=== PATIENT | female | born 1990 | race Caucasian/White ===

== ENCOUNTER 2019-10-31 16:27 | Emergency (ER) | payer BC ==
[2019-10-31] MEDS ORDERED: Aspirin 325 MG Tab PO ONE (16:51)
[2019-10-31] MEDS ORDERED: Sodium Chloride 0.9% 1,000 ML IV ONE (16:53)
[2019-10-31] MEDS ORDERED: Aspirin 81 MG Tab.Chew PO ONE (17:10)
--- NOTE | 2019-10-31 17:31 | CR ---
Chest: Portable view of the chest was obtained. Comparison: Prior chest x-ray is not available. Heart is felt to be at the upper limits of normal. Tortuous thoracic aorta is seen. Lungs are clear with no acute parenchymal change. Minimal scoliosis is noted. No acute osseous finding is seen. Impression: 1. Findings as noted above. 2. Nothing acute is seen. Diagnostic code #2 This report was dictated in MDT
[2019-10-31 17:36] LABS: BLOOD UREA NITROGEN,BUN 15 mg/dL (7.0-18.0); CARBON DIOXIDE,CO2 26.3 mmol/L (21.0-32.0); CHLORIDE,CL 104 mmol/L (98-107); GLUCOSE RANDOM 96 mg/dL (74-106); POTASSIUM,K 3.9 mmol/L (3.5-5.1); SODIUM,NA 139 mmol/L (136-145)
--- NOTE | 2019-10-31 18:32 | EDM.PDOC ---
ED HPI GENERAL MEDICAL PROBLEM - General Chief Complaint: Chest Pain Stated Complaint: CHEST PAIN Time Seen by Provider: 10/31/19 16:45 Source of Information: Reports: Patient History Limitations: Reports: No Limitations - History of Present Illness INITIAL COMMENTS - FREE TEXT/NARRATIVE: This 29-year-old female presents to the emergency room with chest tightness lasting the last 2 days. Patient states she had pain over the last 3 hours more than usual. Patient has no cardiac history. Patient has no history of hypertension, family history, hypertension, patient does take hormonal therapy and is denies any shortness of breath. Onset: Today Duration: Day(s): Location: Reports: Chest Quality: Reports: Sharp Severity: Mild Improves with: Reports: None Worsens with: Reports: None Associated Symptoms: Reports: No Other Symptoms - Related Data Allergies Allergy/AdvReac Type Severity Reaction Status Date / Time No Known Allergies Allergy Verified 10/31/19 16:36 Home Meds: Home Meds . [No Known Home Meds] 10/31/19 [History] Past Medical History - Past Surgical History Other HEENT Surgeries/Procedures: Facial Cyst Social & Family History - Tobacco Use Smoking Status *Q: Current Every Day Smoker Years of Tobacco use: 10 Packs/Tins Daily: 0.5 - Caffeine Use Caffeine Use: Reports: None - Recreational Drug Use Recreational Drug Use: No ED ROS GENERAL - Review of Systems Review Of Systems: See Below Constitutional: Reports: No Symptoms HEENT: Reports: No Symptoms Respiratory: Reports: No Symptoms Cardiovascular: Reports: No Symptoms Endocrine: Reports: No Symptoms GI/Abdominal: Reports: No Symptoms : Reports: No Symptoms Musculoskeletal: Reports: No Symptoms Skin: Reports: No Symptoms Neurological: Reports: No Symptoms Psychiatric: Reports: No Symptoms Hematologic/Lymphatic: Reports: No Symptoms Immunologic: Reports: No Symptoms ED EXAM, GENERAL - Physical Exam Exam: See Below Exam Limited By: No Limitations General Appearance: Alert, WD/WN, No Apparent Distress Eye Exam: Bilateral Eye: Normal Fundi, Normal Inspection Ears: Normal External Exam, Normal Canal, Hearing Grossly Normal, Normal TMs Ear Exam: Bilateral Ear: Auricle Normal, Canal Normal Nose: Normal Inspection, Normal Mucosa, No Blood Throat/Mouth: Normal Inspection, Normal Lips, Normal Teeth, Normal Gums, Normal Oropharynx, Normal Voice Head: Atraumatic, Normocephalic Neck: Normal Inspection, Supple, Non-Tender, Full Range of Motion Respiratory/Chest: No Respiratory Distress, Lungs Clear, Normal Breath Sounds, No Accessory Muscle Use, Chest Non-Tender Cardiovascular: Normal Peripheral Pulses, Regular Rate, Rhythm, No Edema, No JVD , No Murmur, No Rub (Female) Exam: Deferred Rectal (Female) Exam: Deferred Back Exam: Normal Inspection, Full Range of Motion Extremities: Normal Inspection, Normal Range of Motion Neurological: Alert, Oriented, CN II-XII Intact, Normal Cognition, Normal Gait Psychiatric: Normal Affect, Normal Mood Skin Exam: Warm, Dry, Intact, Normal Color, No Rash Lymphatic: No Adenopathy EKG INTERPRETATION EKG Date: 10/31/19 Time: 06:00 Rhythm: NSR [place]: Normal QRS: Normal ST-T: Normal QT: Normal Comparison: NA - No Prior EKG (Sinus rhythm no acute changes) Course - Vital Signs Last Recorded V/S: Last Vital Signs Temp 96.4 F L 10/31/19 16:37 Pulse 96 10/31/19 16:37 Resp 18 10/31/19 16:37 BP 144/98 H 10/31/19 16:37 Pulse Ox 99 10/31/19 16:37 - Orders/Labs/Meds Orders: Active Orders 24 hr Category Date Time Status EKG 12 Lead [EKG Documentation Completion] [RC] STAT Care 10/31/19 16:46 Active Sodium Chloride 0.9% [Normal Saline] 1,000 ml Med 10/31/19 16:53 Active IV .Bolus Medication Orders Sodium Chloride (Normal Saline) 1,000 mls @ 125 mls/hr IV .Bolus ONE Stop: 11/01/19 00:52 Last Admin: 10/31/19 17:18 Dose: 125 mls/hr Labs: Laboratory Tests 10/31/19 10/31/19 10/31/19 Range/Units 16:56 16:56 16:56 WBC 8.41 (4.0-11.0) K/uL RBC 4.69 (4.30-5.90) M/uL Hgb 14.4 (12.0-16.0) g/dL Hct 44.2 (36.0-46.0) % MCV 94.2 (80.0-98.0) fL MCH 30.7 (27.0-32.0) pg MCHC 32.6 (31.0-37.0) g/dL RDW Std Deviation 47.4 (28.0-62.0) fl RDW Coeff of Nilo 14 (11.0-15.0) % Plt Count 328 (150-400) K/uL MPV 10.20 (7.40-12.00) fL Neut % (Auto) 57.9 (48.0-80.0) % Lymph % (Auto) 28.9 (16.0-40.0) % [place] % (Auto) 8.2 (0.0-15.0) % Eos % (Auto) 4.6 (0.0-7.0) % Baso % (Auto) 0.4 (0.0-1.5) % Neut # (Auto) 4.9 (1.4-5.7) K/uL Lymph # (Auto) 2.4 (0.6-2.4) K/uL [place] # (Auto) 0.7 (0.0-0.8) K/uL Eos # (Auto) 0.4 (0.0-0.7) K/uL Baso # (Auto) 0.0 (0.0-0.1) K/uL Nucleated RBC % 0.0 /100WBC Nucleated RBCs # 0 K/uL D-Dimer, Quantitative 0.38 (0.0-0.50) mg/L FEU Sodium 139 (136-145) mmol/L Potassium 3.9 (3.5-5.1) mmol/L Chloride 104 (98-107) mmol/L Carbon Dioxide 26.3 (21.0-32.0) mmol/L BUN 15 (7.0-18.0) mg/dL Creatinine 1.0 (0.6-1.0) mg/dL Est Cr Clr Drug Dosing 77.71 mL/min Estimated GFR (MDRD) > 60.0 ml/min Glucose 96 (74-106) mg/dL Calcium 9.0 (8.5-10.1) mg/dL Total Bilirubin 0.2 (0.2-1.0) mg/dL AST 23 (15-37) IU/L ALT 25 (14-63) IU/L Alkaline Phosphatase 91 (46-116) U/L Troponin I < 0.050 (0.000-0.056) ng/mL Total Protein 7.1 (6.4-8.2) g/dL Albumin 3.8 (3.4-5.0) g/dL Globulin 3.3 (2.6-4.0) g/dL Albumin/Globulin Ratio 1.2 (0.9-1.6) Meds: Medications Generic Name Dose Route Start Last Admin Trade Name Freq PRN Reason Stop Dose Admin Sodium Chloride 1,000 mls @ 125 mls/hr 10/31/19 16:53 10/31/19 17:18 Normal Saline IV 11/01/19 00:52 125 mls/hr .Bolus ONE Administration Discontinued Medications Generic Name Dose Route Start Last Admin Trade Name Freq PRN Reason Stop Dose Admin Aspirin 81 mg 10/31/19 16:51 10/31/19 17:11 Aspirin PO 10/31/19 16:52 Not Given ONETIME ONE Aspirin 324 mg 10/31/19 17:10 10/31/19 17:17 Aspirin PO 10/31/19 17:11 324 mg ONETIME ONE Administration Departure - Departure Time of Disposition: 18:26 Disposition: Home, Self-Care 01 Condition: Good Clinical Impression: Costochondritis, acute Instructions: Costochondritis, [id number], Chest Wall Pain, [id number] Referrals: PCP,None [Primary Care Provider] - Additional Instructions: 1. Patient is to take her medication as prescribed. #2 follow-up with primary care physician 3. Return to the emergency room for any acute pain nausea vomiting Sepsis Event Note - Evaluation Sepsis Screening Result: No Definite Risk - Focused Exam Vital Signs: Vital Signs Temp Pulse Resp BP Pulse Ox 10/31/19 16:37 96.4 F L 96 18 144/98 H 99 Date Exam was Performed: 10/31/19 Time Exam was Performed: 18:22 - My Orders Last 24 Hours: My Active Orders 10/31/19 16:46 EKG 12 Lead [EKG Documentation Completion] [RC] STAT 10/31/19 16:53 Sodium Chloride 0.9% [Normal Saline] 1,000 ml IV .Bolus - Assessment/Plan Last 24 Hours: My Active Orders 10/31/19 16:46 EKG 12 Lead [EKG Documentation Completion] [RC] STAT 10/31/19 16:53 Sodium Chloride 0.9% [Normal Saline] 1,000 ml IV .Bolus
[2019-10-31] MEDS ORDERED: Ibuprofen 600 MG Tab PO ONE (18:33)
== END 2019-10-31 18:54 | disposition home or self-care (01) ==
LOC: MW.ED 16:27
DX: M94.0 Chondrocostal junction syndrome [Tietze] (principal); F17.210 Nicotine dependence, cigarettes, uncomplicated
CPT/HCPCS: 36415; 71045; 80053; 84484; 85025; 85379; 93005; 99285; A9270; J7030; 99283